=== PATIENT | female | born 1950 | race Caucasian/White ===

== ENCOUNTER 2017-07-27 06:57 | Emergency (ER) | payer BC, MEDICARE ==
[2017-07-27] MEDS ORDERED: Acetaminophen 325 MG Tab PO ONE (07:31)
--- NOTE | 2017-07-27 07:35 | EDM.PDOC ---
ED HPI GENERAL MEDICAL PROBLEM - General Chief Complaint: Lower Extremity Injury/Pain Stated Complaint: R ANKLE INJURY Time Seen by Provider: 07/27/17 07:25 Source of Information: Reports: Patient, RN Notes Reviewed - History of Present Illness INITIAL COMMENTS - FREE TEXT/NARRATIVE: 67-year-old lady injured her ankle just over an hour ago. Was stepping off of a curb and suffered inversion injury to the right ankleonset of quite severe pain lateral aspect of right ankle. She has been unable to bear weight. He is to have pain and swelling of the lateral aspect of the right ankle.He does have some pain that radiates up the leg but no severe hip knee or upper leg discomfort. Right Ankle Pain Score (Numeric/FACES): 8 - Related Data Allergies Allergy/AdvReac Type Severity Reaction Status Date / Time azithromycin [From Zithromax] Allergy Hives Verified 07/27/17 07:51 ciprofloxacin [From Cipro] Allergy Hives Verified 07/27/17 07:51 codeine Allergy Delusions Verified 07/27/17 07:51 egg Allergy Hives Verified 07/27/17 07:51 fentanyl Allergy Respiratory Verified 07/27/17 07:51 Depression gluten Allergy Stomach Verified 07/27/17 07:51 Upset Influenza Virus Vaccines Allergy Hives Verified 07/27/17 07:51 latex Allergy Hives Verified 07/27/17 07:51 lisinopril Allergy Facial Verified 07/27/17 07:51 Swelling losartan Allergy Hives Verified 07/27/17 07:51 nickel Allergy Other Verified 07/27/17 07:51 oxycodone Allergy Delusions Verified 07/27/17 07:51 paroxetine [From Paxil] Allergy Delusions Verified 07/27/17 07:51 sertraline [From Zoloft] Allergy Hives Verified 07/27/17 07:51 wheat Allergy Other Verified 07/27/17 07:51 Home Meds: Home Meds . [No Known Home Meds] 07/27/17 [History] Past Medical History Endocrine/Metabolic History: Reports: Other (See Below) Other Endocrine/Metabolic History: lymphadema Oncologic (Cancer) History: Reports: Breast Social & Family History - Tobacco Use Smoking Status *Q: Never Smoker Review of Systems - Review of Systems Review Of Systems: See Below Constitutional: Reports: No Symptoms Ears: Reports: No Symptoms Nose: Reports: No Symptoms Respiratory: Denies: Shortness of Breath Cardiovascular: Denies: Chest Pain GI/Abdominal: Denies: Abdominal Pain, Nausea, Vomiting Musculoskeletal: Reports: Joint Pain (right ankle) Skin: Reports: Bruising Neurological: Denies: Numbness (right lateral ankle), Tingling ED EXAM, GENERAL - Physical Exam Exam: See Below General Appearance: Alert, Moderate Distress Eye Exam: Bilateral Eye: PERRL Throat/Mouth: Normal Inspection Head: Atraumatic Neck: Supple Respiratory/Chest: No Respiratory Distress Extremities: Joint Swelling (ight lateral ankle, moderate tenderness right lateral ankle), Other (mild tenderness medial ankle knee hip upper leg and thigh nontender) Neurological: No Motor/Sensory Deficits Skin Exam: Warm, Dry ED TRAUMA EXTREMITY PROCEDURES - Splinting Right Lower Extremity Splint Site: right ankle and lower leg Pre-Procedure NV Status: Normal Post-Procedure NV Status: Normal Splint Material: Fiberglass Splint Design: Posterior Applied & Form Fitted By: Provider Provider Post-Splint Application NV Check: NV Status Normal Complications: No Course - Vital Signs Last Recorded V/S: Last Vital Signs Temp 98.5 F 07/27/17 07:18 Pulse 88 07/27/17 07:18 Resp 18 07/27/17 07:18 BP 149/87 H 07/27/17 07:18 Pulse Ox 100 07/27/17 07:18 - Orders/Labs/Meds Orders: Active Orders 24 hr Category Date Time Status Ankle Min 3V Rt [CR] Stat Exams 07/27/17 07:31 Taken Meds: Medications Discontinued Medications Generic Name Dose Route Start Last Admin Trade Name Madeline PRN Reason Stop Dose Admin Acetaminophen 975 mg 07/27/17 07:31 07/27/17 07:42 Tylenol PO 07/27/17 07:32 975 mg NOW ONE Administration - Re-Assessments/Exams Free Text/Narrative Re-Assessment/Exam: 07/27/17 08:21 x-rays of the ankle do show a couple of calcifications distal tip of the fibula , one does look like acute avulsion fracture the other may be old but may also be acute. No significant displacement. Plan to do fiberglass posterior splintand then she will need crutches. Departure - Departure Time of Disposition: 08:31 Disposition: Home, Self-Care 01 Condition: Fair Clinical Impression: Ankle sprain Qualifiers: Encounter type: initial encounter Involved ligament of ankle: unspecified ligament Laterality: right Qualified Code(s): S93.401A - Sprain of unspecified ligament of right ankle, initial encounter Avulsion fracture of ankle Qualifiers: Encounter type: initial encounter Fracture type: closed - Discharge Information Instructions: Ankle Sprain, [id number], Ankle Fracture Referrals: PCP,Not In Area [Primary Care Provider] - Forms: ED Department Discharge Additional Instructions: Fiberglas splint right ankle, ice packs and elevation for swelling, try keep foot and ankle elevated as much as possible. Crutches, nonweightbearing as much as possible. Follow-up with your regular medical provider later next week for recheck. Call Saturday morning for appointment. Tylenol 2-3 times daily if needed for pain. - My Orders Last 24 Hours: My Active Orders 07/27/17 07:31 Ankle Min 3V Rt [CR] Stat - Assessment/Plan Last 24 Hours: My Active Orders 07/27/17 07:31 Ankle Min 3V Rt [CR] Stat
--- NOTE | 2017-07-28 14:14 | CR ---
Right ankle: Four views of the right ankle were obtained. Comparison: No prior ankle study. Small calcifications are seen off the distal fibula compatible with acute avulsion injuries. Soft tissue swelling is noted. Bony densities are noted off the medial malleolus which appear well corticated and are likely old. Plantar spur is seen. Impression: 1. Small avulsion injuries off the inferior fibula with adjacent soft tissue swelling. 2. Findings of old injury off the medial malleolus and incidental plantar spur. Diagnostic code #3
== END 2017-07-27 10:22 | disposition home or self-care (01) ==
LOC: JD.ED 06:57
DX: S82.891A Other fracture of right lower leg, initial encounter for closed fracture (principal); S93.401A Sprain of unspecified ligament of right ankle, initial encounter; Z88.1 Allergy status to other antibiotic agents; Z88.8 Allergy status to other drugs, medicaments and biological substances; Z88.7 Allergy status to serum and vaccine; Z91.040 Latex allergy status; Z88.5 Allergy status to narcotic agent; X50.9XXA Other and unspecified overexertion or strenuous movements or postures, initial encounter
CPT/HCPCS: 29515; 73610; 99283; A9270